=== PATIENT | female | born 1940 | race Two or more races ===

== ENCOUNTER 2016-07-29 18:57 | Emergency (ER) | payer OTHER, MEDICAID ==
[~2016-07-29] VITALS: Ht 157.5 cm; Wt 61.0 kg
[2016-07-29] MEDS ORDERED: LIDOCAINE HCL 1%/EPI 1:200,000 30 ML VIAL MC ONE (21:30)
[2016-07-29] MEDS ORDERED: BACITRACIN ZINC OINT UDPKT TOP ONE (21:30)
[2016-07-30] MEDS ORDERED: CEPHALEXIN 500MG CAPSULE PO ONE
[2016-07-30] MEDS ORDERED: CEPHALEXIN 500MG CAPSULE PO NR (00:13)
[2016-07-30 01:02] VITALS: BP 185/85
== END 2016-07-30 01:05 | disposition home or self-care (01) ==
LOC: ER 18:58
DX: S41.111A Laceration without foreign body of right upper arm, initial encounter (principal); I10 Essential (primary) hypertension; W45.8XXA Other foreign body or object entering through skin, initial encounter; Y93.89 Activity, other specified; Y92.89 Other specified places as the place of occurrence of the external cause; Y99.8 Other external cause status
CPT/HCPCS: 12002; 73090; 99284; Z7610

== ENCOUNTER 2016-08-01 08:58 | Emergency (ER) | payer OTHER, MEDICAID ==
[~2016-08-01] VITALS: Ht 165.1 cm; Wt 73.0 kg
[2016-08-01 09:09] VITALS: BP 134/74
== END 2016-08-01 11:05 | disposition home or self-care (01) ==
LOC: ER 11:05
DX: S51.811D Laceration without foreign body of right forearm, subsequent encounter (principal); I10 Essential (primary) hypertension
CPT/HCPCS: 99282

== ENCOUNTER 2016-08-14 18:04 | Emergency (ER) | payer OTHER, MEDICAID ==
[~2016-08-14] VITALS: Ht 154.9 cm; Wt 71.0 kg
[2016-08-14 20:45] VITALS: BP 150/67
== END 2016-08-14 21:05 | disposition home or self-care (01) ==
LOC: ER 18:04
DX: S41.111D Laceration without foreign body of right upper arm, subsequent encounter (principal); I10 Essential (primary) hypertension
CPT/HCPCS: 99281; Z7610

== ENCOUNTER 2019-04-30 11:29 | Emergency (ER) | payer MEDICAID, MEDICARE, OTHER ==
[~2019-04-30] VITALS: Ht 144.8 cm; Wt 46.0 kg
[2019-04-30] MEDS ORDERED: IBUPROFEN 600MG TABLET PO ONE (14:30)
[2019-04-30 15:36] VITALS: BP 123/82
== END 2019-04-30 15:38 | disposition home or self-care (01) ==
LOC: ER 11:29
DX: M81.0 Age-related osteoporosis without current pathological fracture (principal)
CPT/HCPCS: 73110; 99283

== ENCOUNTER 2020-03-09 13:49 | Emergency (ER) | payer MEDICARE ==
[~2020-03-09] VITALS: Ht 160 cm; Wt 55.0 kg
[2020-03-09] MEDS ORDERED: ACETAMINOPHEN 325MG TABLET PO STA (17:15)
[2020-03-09 18:07] LABS: CLARITY URINE CLEAR (CLEAR); COLOR URINE DARK YELLOW (YELLOW); KETONES URINE TRACE (NEGATIVE); LEUKOCYTE ESTERASE URINE TRACE (NEGATIVE); NITRITE URINE NEGATIVE (NEGATIVE); OCCULT BLOOD URINE TRACE (NEGATIVE); PH URINE 5.5 (4.5-8.0); PROTEIN URINE TRACE (NEGATIVE); SPECIFIC GRAVITY URINE 1.024 (1.005-1.030)
[2020-03-09 18:17] LABS: BASOPHILS % 0.6 % (0.0-2.0); HEMATOCRIT. 33.3 % (36.0-48.0); HEMOGLOBIN. 11.9 g/dL (12.0-16.0); MEAN CORPUSCULAR HEMOGLOBIN 33.4 pg (28.0-32.0); MEAN PLATELET VOLUME 7.4 fl (7.4-10.4); NEUTROPHILS % 72.4 % (40.0-76.0); PLATELET 369 x1000/uL (130-400); RED BLOOD CELL COUNT 3.55 mill/uL (4.2-5.4); RED CELL DISTRIBUTION WIDTH 13.1 % (11.6-14.6)
[2020-03-09 18:20] LABS: CHLORIDE 104 mEq/L (98-107)
[2020-03-09 19:33] VITALS: BP 130/60
== END 2020-03-09 19:37 | disposition home or self-care (01) ==
LOC: ER 13:49
DX: N39.0 Urinary tract infection, site not specified (principal); I49.9 Cardiac arrhythmia, unspecified
CPT/HCPCS: 36415; 71045; 74176; 80053; 81003; 85025; 93005; 99285

== ENCOUNTER 2020-12-31 18:32 | Inpatient (IN) | payer MEDICARE, MEDICAID ==
[~2020-12-31] VITALS: Ht 157.5 cm; Wt 52.4 kg
[2020-12-31 19:31] LABS: EOSINOPHILS % 2.9 % (0.0-5.0); HEMATOCRIT. 36.5 % (36.0-48.0); HEMOGLOBIN. 12.4 g/dL (12.0-16.0); LYMPHOCYTES % 25.3 % (20.0-50.0); MEAN CORPUSCULAR HEMOGLOBIN 32.8 pg (28.0-32.0); MEAN CORPUSCULAR VOLUME 96.7 fL (81.0-99.0); MEAN PLATELET VOLUME 8.5 fl (7.4-10.4); MONOCYTES % 8.6 % (2.0-8.0); NEUTROPHILS % 62.2 % (40.0-76.0); PLATELET 301 x1000/uL (130-400); RED BLOOD CELL COUNT 3.77 mill/uL (4.2-5.4)
[2020-12-31 19:32] LABS: CHLORIDE 109 mEq/L (98-107)
[2020-12-31 19:36] LABS: ETHANOL BLOOD < 10 mg/dL
[2020-12-31 19:39] LABS: LDL CHOLESTEROL 111 mg/dL (5-100)
[2020-12-31] MEDS ORDERED: IOHEXOL-350 100 ML BOTTLE ONE (19:59)
[2020-12-31] MEDS ORDERED: SODIUM CHLORIDE 0.9% 500 ML IV ONE (21:00)
[2020-12-31 21:25] LABS: CLARITY URINE CLEAR (CLEAR); COLOR URINE YELLOW (YELLOW); KETONES URINE NEGATIVE (NEGATIVE); LEUKOCYTE ESTERASE URINE NEGATIVE (NEGATIVE); NITRITE URINE NEGATIVE (NEGATIVE); OCCULT BLOOD URINE NEGATIVE (NEGATIVE); PROTEIN URINE NEGATIVE (NEGATIVE); SPECIFIC GRAVITY URINE 1.061 (1.005-1.030); UROBILINOGEN URINE 0.2 E.U./dL (0.2-1.0)
[2020-12-31 21:38] LABS: *AMPHETAMINES SCREEN URINE NEGATIVE (NEGATIVE); *BARBITURATES SCREEN URINE NEGATIVE (NEGATIVE)
[2020-12-31 21:39] LABS: *BENZODIAZEPINES SCREEN URINE NEGATIVE (NEGATIVE); *COCAINE SCREEN URINE NEGATIVE (NEGATIVE); CANNABINOID URINE SCREEN NEGATIVE (NEGATIVE); METHADONE URINE SCREEN NEGATIVE (NEGATIVE); OPIATES URINE SCREEN NEGATIVE (NEGATIVE); PHENCYCLIDINE URINE SCREEN NEGATIVE (NEGATIVE)
[2020-12-31] MEDS ORDERED: AMLODIPINE 10MG TABLET PO ONE (22:00)
[2020-12-31 23:59] VITALS: BP 203/70
[2021-01-01 00:01] VITALS: BP 203/70
[2021-01-01] MEDS ORDERED: HYDROCODONE/ACETAMINOPHEN 5/325MG TABLET PO PRN (00:45)
[2021-01-01] MEDS ORDERED: CLONIDINE 0.1MG TABLET PO PRN (00:45)
[2021-01-01] MEDS ORDERED: LORAZEPAM 2MG/ML CPJ IV PRN (00:45)
[2021-01-01] MEDS ORDERED: ACETAMINOPHEN 650MG/20.3ML UDC PO PRN (00:45)
[2021-01-01] MEDS ORDERED: MECLIZINE 25MG TABLET PO PRN (02:00)
[2021-01-01] MEDS ORDERED: DICL50TA9 PO (02:26)
[2021-01-01] MEDS ORDERED: MELO-106 PO (02:26)
[2021-01-01] MEDS ORDERED: LATA2.5D14 (02:26)
[2021-01-01] MEDS ORDERED: MECL-159 PO (02:26)
[2021-01-01] MEDS ORDERED: BACL-141 PO (02:26)
[2021-01-01] MEDS ORDERED: DONE10TA43 PO (02:26)
[2021-01-01] MEDS ORDERED: IBUP-2028 PO (02:26)
[2021-01-01 04:00] VITALS: BP 136/59
[2021-01-01] MEDS ORDERED: BACLOFEN 10MG TABLET PO SCH (06:00)
[2021-01-01 07:00] LABS: CHLORIDE 108 mEq/L (98-107)
[2021-01-01 07:02] LABS: BASOPHILS % 1.3 % (0.0-2.0); EOSINOPHILS % 4.5 % (0.0-5.0); HEMATOCRIT. 37.3 % (36.0-48.0); HEMOGLOBIN. 12.7 g/dL (12.0-16.0); LYMPHOCYTES % 26.7 % (20.0-50.0); MEAN CORPUSCULAR HEMOGLOBIN 32.8 pg (28.0-32.0); MEAN CORPUSCULAR VOLUME 96.4 fL (81.0-99.0); MEAN PLATELET VOLUME 8.8 fl (7.4-10.4); NEUTROPHILS % 57.5 % (40.0-76.0); PLATELET 291 x1000/uL (130-400); RED BLOOD CELL COUNT 3.87 mill/uL (4.2-5.4); RED CELL DISTRIBUTION WIDTH 13.7 % (11.6-14.6)
[2021-01-01 08:00] VITALS: BP 120/79
[2021-01-01] MEDS: ENOXAPARIN 40MG/0.4ML SYR SUBCUT SCH (09:11)
[2021-01-01] MEDS: AMLODIPINE 10MG TABLET PO SCH (09:12)
[2021-01-01] MEDS: ASPIRIN 81MG TABLET PO SCH (09:12)
[2021-01-01 12:00] VITALS: BP 128/57
[2021-01-01 16:00] VITALS: BP 126/63
[2021-01-01] MEDS ORDERED: ERGO80009 (19:08)
[2021-01-01] MEDS ORDERED: GABA-529 MT (19:08)
[2021-01-01 20:00] VITALS: BP 137/65
[2021-01-01] MEDS: ATORVASTATIN CALCIUM 40MG TABLET PO SCH (21:14)
[2021-01-02] VITALS: BP 158/99
[2021-01-02 04:00] VITALS: BP 123/65
[2021-01-02 08:00] VITALS: BP 134/67
[2021-01-02] MEDS: ASPIRIN 81MG TABLET PO SCH (08:49)
[2021-01-02] MEDS: AMLODIPINE 10MG TABLET PO SCH (08:50)
[2021-01-02] MEDS: ENOXAPARIN 40MG/0.4ML SYR SUBCUT SCH (08:50)
[2021-01-02] MEDS ORDERED: NALOXONE HCL 0.4MG/ML VIAL IV PRN (13:00)
[2021-01-02 16:00] VITALS: BP 123/65
[2021-01-02 20:00] VITALS: BP 138/62
[2021-01-02] MEDS: ATORVASTATIN CALCIUM 40MG TABLET PO SCH (21:56)
[2021-01-02] MEDS: DONEPEZIL HCL 10MG TABLET PO SCH (21:57)
[2021-01-03] VITALS: BP 116/55
[2021-01-03 04:00] VITALS: BP 140/60
[2021-01-03 08:00] VITALS: BP 154/68
[2021-01-03] MEDS: ASPIRIN 81MG TABLET PO SCH (08:25)
[2021-01-03] MEDS: ENOXAPARIN 40MG/0.4ML SYR SUBCUT SCH (08:25)
[2021-01-03] MEDS: AMLODIPINE 10MG TABLET PO SCH (08:26)
[2021-01-03 12:00] VITALS: BP 143/61
[2021-01-03 16:00] VITALS: BP 127/59
[2021-01-03 20:00] VITALS: BP 150/68
[2021-01-03] MEDS ORDERED: NALOXONE HCL 0.4MG/ML VIAL IV PRN (21:00)
[2021-01-03] MEDS: DONEPEZIL HCL 10MG TABLET PO SCH (21:38)
[2021-01-03] MEDS: ATORVASTATIN CALCIUM 40MG TABLET PO SCH (21:38)
[2021-01-04] VITALS (46 sets, daily range): BP systolic 87–187; BP diastolic 29–70
[2021-01-04] MEDS ORDERED: BACITRACIN 15GM TUBE TOP ONE (06:57)
[2021-01-04] MEDS ORDERED: THROMBIN (BOVINE) 5000 UNITS/VIAL TOP ONE (06:57)
[2021-01-04] MEDS ORDERED: LIDOCAINE HCL 1% 20ML VIAL (Pyxis) INJ ONE ×2 (06:57→08:46)
[2021-01-04] MEDS ORDERED: BUPIVACAINE HCL/PF 0.5% (5MG/ML) 10ML ONE (06:58)
[2021-01-04] MEDS ORDERED: HEPARIN SODIUM 1,000 UNIT/1ML VIAL IV ONE (06:58)
[2021-01-04] MEDS ORDERED: POLYMYXIN B SULFATE 500000 UNITS/VIAL ONE (06:59)
[2021-01-04 07:41] LABS: BASOPHILS % 1.1 % (0.0-2.0); EOSINOPHILS % 2.2 % (0.0-5.0); HEMATOCRIT. 38.6 % (36.0-48.0); HEMOGLOBIN. 13.5 g/dL (12.0-16.0); LYMPHOCYTES % 29.9 % (20.0-50.0); MEAN CORPUSCULAR VOLUME 94.5 fL (81.0-99.0); MEAN PLATELET VOLUME 7.9 fl (7.4-10.4); MONOCYTES % 9.8 % (2.0-8.0); PLATELET 322 x1000/uL (130-400); RED BLOOD CELL COUNT 4.08 mill/uL (4.2-5.4); RED CELL DISTRIBUTION WIDTH 13.8 % (11.6-14.6)
[2021-01-04 07:47] LABS: CHLORIDE 106 mEq/L (98-107)
[2021-01-04] MEDS ORDERED: MIDAZOLAM HCL 2 MG/2 ML VIAL ONE (07:47)
[2021-01-04] MEDS ORDERED: FENTANYL CITRATE/PF 50MCG/ML 2ML VIAL ONE (07:47)
[2021-01-04] MEDS ORDERED: PROPOFOL 200MG/20ML VIAL IV ONE (07:47)
[2021-01-04] MEDS ORDERED: ROCURONIUM BROMIDE 10MG/ML VIAL 5ML IV ONE (07:48)
[2021-01-04] MEDS ORDERED: LIDOCAINE HCL/PF 1% 10 MG/ML 5ML VIAL ONE (08:45)
[2021-01-04] MEDS ORDERED: HEPARIN 1000 UNITS/ML 10ML ONE (08:45)
[2021-01-04] MEDS ORDERED: ONDANSETRON HCL 4MG/2ML INJ ONE (08:45)
[2021-01-04] MEDS ORDERED: LABETALOL HCL 5MG/ML VIAL 20ML IV ONE (08:45)
[2021-01-04] MEDS ORDERED: DEXAMETHASONE 4MG/ML 1ML VIAL ONE (08:45)
[2021-01-04] MEDS ORDERED: EPHEDRINE SULFATE 50MG/ML VIAL ONE (08:45)
[2021-01-04] MEDS ORDERED: CEFAZOLIN SODIUM 1000MG/VIAL ONE (08:45)
[2021-01-04] MEDS ORDERED: SKIN ADHESIVE 0.7 GM EA TOP ONE (09:57)
[2021-01-04] MEDS ORDERED: NEOSTIGMINE METHYLSULFATE 1MG/ML 10 ML VIAL ONE (10:01)
[2021-01-04] MEDS ORDERED: METOCLOPRAMIDE HCL 10MG/2ML VIAL ONE (10:01)
[2021-01-04] MEDS ORDERED: GLYCOPYRROLATE 0.2 MG/ML 2ML VIAL ONE (10:02)
[2021-01-04] MEDS ORDERED: ESMOLOL IV PRN (11:15)
[2021-01-04] MEDS ORDERED: PHENYLEPHRINE 50 MG in DEXTROSE 5% WATER 250 ML IV PRN (11:15)
[2021-01-04] MEDS ORDERED: HYDRALAZINE 20MG/ML VIAL IV PRN (16:45)
[2021-01-04] MEDS: CEFAZOLIN 1000MG PREMIX 50 ML IV SCH (17:27)
[2021-01-04 18:11] LABS: PARTIAL THROMBOPLASTIN TIME 23.9 sec (23.4-31.0)
[2021-01-04] MEDS: ATORVASTATIN CALCIUM 40MG TABLET PO SCH (20:59)
[2021-01-04] MEDS: DONEPEZIL HCL 10MG TABLET PO SCH (20:59)
[2021-01-04] MEDS: KETOROLAC 15MG/ML VIAL IV PRN (21:18)
[2021-01-05] VITALS (83 sets, daily range): BP systolic 94–172; BP diastolic 11–95
[2021-01-05] MEDS: CEFAZOLIN 1000MG PREMIX 50 ML IV SCH (02:05)
[2021-01-05 06:01] LABS: CHLORIDE 106 mEq/L (98-107)
[2021-01-05 06:02] LABS: BASOPHILS % 0.1 % (0.0-2.0); HEMATOCRIT. 34.3 % (36.0-48.0); HEMOGLOBIN. 11.3 g/dL (12.0-16.0); LYMPHOCYTES % 7.6 % (20.0-50.0); MEAN CORPUSCULAR HEMOGLOBIN 31.9 pg (28.0-32.0); MEAN CORPUSCULAR VOLUME 97.1 fL (81.0-99.0); MEAN PLATELET VOLUME 8.7 fl (7.4-10.4); MONOCYTES % 7.1 % (2.0-8.0); NEUTROPHILS % 85.2 % (40.0-76.0); PLATELET 298 x1000/uL (130-400); RED BLOOD CELL COUNT 3.53 mill/uL (4.2-5.4)
[2021-01-05] MEDS: ENOXAPARIN 40MG/0.4ML SYR SUBCUT SCH ×2 (08:59→13:15)
[2021-01-05] MEDS: ASPIRIN 81MG TABLET PO SCH (09:00)
[2021-01-05] MEDS: AMLODIPINE 10MG TABLET PO SCH (09:01)
[2021-01-05] MEDS: KETOROLAC 15MG/ML VIAL IV PRN (20:57)
[2021-01-05] MEDS: ATORVASTATIN CALCIUM 40MG TABLET PO SCH (21:01)
[2021-01-05] MEDS: DONEPEZIL HCL 10MG TABLET PO SCH (21:01)
[2021-01-06] VITALS (11 sets, daily range): BP systolic 115–158; BP diastolic 62–78
[2021-01-06] MEDS: ASPIRIN 81MG TABLET PO SCH (09:15)
[2021-01-06] MEDS: AMLODIPINE 10MG TABLET PO SCH (09:15)
[2021-01-06] MEDS: ENOXAPARIN 40MG/0.4ML SYR SUBCUT SCH (09:16)
[2021-01-06] MEDS ORDERED: ASPI-1160 PO (10:46)
[2021-01-06] MEDS ORDERED: LIP40 PO (10:46)
[2021-01-06] MEDS ORDERED: AMLO10TA80 PO (10:46)
[2021-01-06 12:35] LABS: BASOPHILS % 0.9 % (0.0-2.0); EOSINOPHILS % 0.8 % (0.0-5.0); HEMATOCRIT. 38.2 % (36.0-48.0); HEMOGLOBIN. 12.8 g/dL (12.0-16.0); LYMPHOCYTES % 17.7 % (20.0-50.0); MEAN CORPUSCULAR HEMOGLOBIN 32.7 pg (28.0-32.0); MEAN CORPUSCULAR VOLUME 97.3 fL (81.0-99.0); MEAN PLATELET VOLUME 8.5 fl (7.4-10.4); MONOCYTES % 10.3 % (2.0-8.0); NEUTROPHILS % 70.3 % (40.0-76.0); PLATELET 316 x1000/uL (130-400); RED BLOOD CELL COUNT 3.93 mill/uL (4.2-5.4); RED CELL DISTRIBUTION WIDTH 13.9 % (11.6-14.6)
[2021-01-06 12:42] LABS: CHLORIDE 105 mEq/L (98-107)
== END 2021-01-06 15:15 | disposition home or self-care (01) | DRG 37 ==
LOC: ER 18:32 → 7EST 21:42 → EDBEDREQSVC 22:12 → EDBEDREQTM 22:12 → EDBEDREQ 22:20 → ENRESERV 22:54 → CVICU 01-04 10:40 → 8WST 01-06 01:40
PROVIDERS: ADMIT Internal Medicine; ATTEND Internal Medicine
PROC: 4A10X4Z Monitoring of Central Nervous Electrical Activity, External Approach (ICD-10-PCS; principal; 2021-01-02)
PROC: 03CJ0ZZ Extirpation of Matter from Left Common Carotid Artery, Open Approach (ICD-10-PCS; 2021-01-04)
PROC: 03CN0ZZ Extirpation of Matter from Left External Carotid Artery, Open Approach (ICD-10-PCS; 2021-01-04)
PROC: 03CL0ZZ Extirpation of Matter from Left Internal Carotid Artery, Open Approach (ICD-10-PCS; 2021-01-04)
PROC: 03UJ0KZ Supplement Left Common Carotid Artery with Nonautologous Tissue Substitute, Open Approach (ICD-10-PCS; 2021-01-04)
PROC: 03HY32Z Insertion of Monitoring Device into Upper Artery, Percutaneous Approach (ICD-10-PCS; 2021-01-04)
PROC: 4A133B1 Monitoring of Arterial Pressure, Peripheral, Percutaneous Approach (ICD-10-PCS; 2021-01-04)
PROC: 4A133J1 Monitoring of Arterial Pulse, Peripheral, Percutaneous Approach (ICD-10-PCS; 2021-01-04)
DX: I65.22 Occlusion and stenosis of left carotid artery (principal); I63.9 Cerebral infarction, unspecified; G93.41 Metabolic encephalopathy; I67.1 Cerebral aneurysm, nonruptured; E78.5 Hyperlipidemia, unspecified; E87.8 Other disorders of electrolyte and fluid balance, not elsewhere classified; I10 Essential (primary) hypertension; M81.0 Age-related osteoporosis without current pathological fracture; Z20.822 Contact with and (suspected) exposure to COVID-19; M19.90 Unspecified osteoarthritis, unspecified site; Z82.49 Family history of ischemic heart disease and other diseases of the circulatory system; Z90.710 Acquired absence of both cervix and uterus
CPT/HCPCS: 36415; 70496; 70498; 70551; 71045; 80048; 80053; 80305; 80320; 81003; 82962; 83721; 83880; 84484; 85025; 86850; 86900; 87426; 88304; 88311; 93005; 95816; 97162; 97166; 99291; J0360; J0690; J1100; J1644; J1650; J1885; J2250; J2405; J2704; J2710; J2765; J3010; J3490; J7040; Q9967; G0480